=== PATIENT | male | born 1945 | race Caucasian/White ===

== ENCOUNTER 2019-09-13 06:57 | Day surgery (SDC) | payer OTHER, BC ==
[2019-09-12 14:55] VITALS: BMI 28.1
[2019-09-13] MEDS ORDERED: PROPOFOL 20 ML ONE (07:17)
[2019-09-13] MEDS ORDERED: MIDAZOLAM HCL 2 MG/2 ML SINGLE DOSE VIAL ONE ×2 (07:17)
[2019-09-13] MEDS ORDERED: SUCCINYLCHOLINE CHLORIDE 200 MG/10 ML SYRINGE ONE (07:17)
[2019-09-13] MEDS ORDERED: LIDOCAINE HCL/PF 2% SDV 5ML VIAL ONE (07:18)
[2019-09-13] MEDS ORDERED: KETOROLAC TROMETHAMINE 30 MG/1 ML VIAL ONE (07:18)
[2019-09-13] MEDS ORDERED: DEXAMETHASONE SOD PHOSPHATE 4 MG/1 ML VIAL ONE (07:18)
[2019-09-13] MEDS ORDERED: ceFAZolin SODIUM 1 GM VIAL ONE (07:18)
[2019-09-13] MEDS ORDERED: DEXAMETHASONE SOD PHOSPHATE/PF 10 MG/ML SDV ONE (07:29)
[2019-09-13] MEDS ORDERED: BUPIVACAINE HCL/PF 0.5% (5 MG/ML) 30 ML VIAL IJ ONE (07:29)
--- NOTE | 2019-09-13 08:08 | HP ---
Satellite [facility] - Chief Complaint Chief Complaint: right shoulder pain - Past Medical History Allergies/Adverse Reactions: Allergies Allergy/AdvReac Type Severity Reaction Status Date / Time No Known Allergies Allergy Verified 09/13/19 07:46 - Current Medications Current Medications: Home Medications Medication Instructions Recorded Carbidopa/Levodopa 1 each PO TID 09/12/19 [Carbidopa-Levodopa 25-100 Tab] Latanoprost/Pf [Latanoprost 0.005% 7.5 ml OP HS 09/12/19 Eye Drop] Levobunolol HCl [Betagan 0.5% -] 1 - 2 drop BID 09/12/19 Vitaligo Formula 900 4 cap PO TID 09/12/19 Satellite Physical Exam - Physical Examination Vital Signs: Vital Signs Period Temp Pulse Resp BP Sys/Belcher Pulse Ox Last 24 Hr 97.5 F 55 16 112/55 97 General Appearance: Well Nourished, Well Developed, Alert & Oriented x3 ENT: Clear Lung: Normal air movement Extremities: Other (right shoulder- + ttp ,dec rom, + neer, + koehler, + empty can, nvi, MRI + rct) Neurological: Intact, Alert, Oriented Satellite Impression/Plan - Impression/Plan Impression: right shoulder rct Operative Procedure: right shoulder arthroscopy with RCYANIQUE Lainez Date to be Performed: 09/13/19
[2019-09-13] MEDS ORDERED: ceFAZolin SODIUM 1 GM VIAL IVPB ONE (08:20)
[2019-09-13] MEDS ORDERED: EPHEDRINE SULFATE/0.9% NACL/PF 50 MG/10 ML SYRINGE NR ONE (09:26)
[2019-09-13] MEDS ORDERED: oxyCODONE HCL 5 MG TABLET PO PRN (10:27)
[2019-09-13] MEDS ORDERED: ONDANSETRON 4 MG/2 ML VIAL IVPUSH PRN (10:27)
[2019-09-13] MEDS ORDERED: LACTATED RINGERS SOLUTION 1,000 ML IV SCH (10:30)
--- NOTE | 2019-09-13 10:35 | OP ---
Operative Note - Note: Operative Date: 09/13/19 ([facility]) Pre-Operative Diagnosis: right shoulder rct Operation: right shoulder arthroscopy with RCR, SAD, DCE, ANGELICA Post-Operative Diagnosis: Same as Pre-op Surgeon: Jeff Anderson Professor Of Communication And Writing: Carlin Weber Anesthesiologist/[employer] INSPECTOR: uBck Castano Anesthesia: General, Local Specimens Removed: shavings Estimated Blood Loss (mls): 5
--- NOTE | 2019-09-13 11:27 | OP ---
DATE OF OPERATION: 09/13/2019 PREOPERATIVE DIAGNOSES: Right shoulder pain, subacromial impingement, acromioclavicular joint arthritis, and rotator cuff tear. POSTOPERATIVE DIAGNOSES: Right shoulder pain, subacromial impingement, acromioclavicular joint arthritis, and rotator cuff tear. PROCEDURE: Right shoulder arthroscopy, subacromial decompression, distal clavicle excision, arthroscopic rotator cuff repair, and manipulation under anesthesia. SURGEON: Jeff Anderson MD SENIOR GEOLOGIST: JEFF Bowers ANESTHESIOLOGIST: Buck Castano CRNA, in with FABI Sutherland. ANESTHESIA: Right interscalene block with LMA anesthesia. DRAINS: None. COMPLICATIONS: None. SPECIMENS: Arthroscopic shavings. BLOOD LOSS: Minimal. BLOOD GIVEN: None. FLUID REPLACEMENT: Plasma-Lyte 700 mL. This patient is a 73-year-old male with preoperative diagnosis of right shoulder pain, subacromial impingement, AC joint arthritis, and a rotator cuff tear. After understanding the potential risks, complications, alternatives, and benefits of surgical versus nonsurgical treatment, the patient elected to undergo this procedure. Patient was brought to the operating room. Peripheral IV placed. IV sedation given. Two grams of IV Ancef were given. After the right interscalene block was performed, LMA anesthesia was induced. He was placed into the beach chair position with ample padding throughout. The right upper extremity was prepped and draped in sterile fashion. Manipulation under anesthesia was done, and I was able to stretch him further by about 15 degrees in both forward flexion and abduction. I did not feel any edith tear or stretching of scar tissue. Next, the posterior portal was established. A diagnostic glenohumeral arthroscopy was performed. Immediately, it was apparent there was some significant tearing of both the biceps tendon and the undersurface of the rotator cuff as the glenohumeral joint was full of collagen fibers. Photographs were taken. An anterior portal was established under direct visualization using a spinal needle, then a number-15 scalpel blade and a green cannula. Next, a straight shaver was introduced into the joint, and the frayed portion of the biceps tendon was debrided as well as the undersurface of the rotator cuff, as well as the labrum. Once I did that, I had much better visualization, and I could see what was going on inside the joint. First, the inferior 50% of the biceps tendon was torn. This was the part that was debrided. Patient had a full-thickness rotator cuff tear on the posterior portion of the supraspinatus. The labrum was degenerated, but there was no edith tear. There was a lot of synovitis. The ArthroCare wand was introduced into the glenohumeral joint, and a partial synovectomy was performed in the glenohumeral joint. Lastly, the patient had a significant area about the size of a half dollar of complete lack of cartilage on the posterior inferior portion of the humeral head. Photographs were taken. Next, our attention was turned to the subacromial space. Patient had a tremendous amount of inflammatory bursitis. A lateral portal was established. An ArthroCare wand was utilized to do a soft tissue bursectomy. Extensive debridement was required. This revealed a large subacromial and large distal subclavicular bony spur. Both of these were taken down with a 5.5-mm oval francisca, fine-tuned in reverse, and then with the shaver to fine tune it further and to remove all bony debris. After the extensive debridement, soft tissue bursectomy, subacromial bony decompression of the spur off the inferior surface of both the acromion and the clavicle, we could directly visualize the top surface of the rotator cuff. Additional bursectomy was required as there was so much bursitis. This revealed 2 separate, but full-thickness rotator cuff tears, one that we visualized from the glenohumeral side of the posterior portion of the supraspinatus and one of the very anterior portion of the supraspinatus. Using a lateral portal, I was able to arthroscopically do a rotator cuff repair of both of these 2 separate, but full-thickness rotator cuff tears. I used the Curvoion needle passer to introduce 2 FiberWires into each of them and tacked it down with an Arthrex SwiveLock anchor. We used 2 anchors total, 4 FiberWires total to do the anterior and the posterior rotator cuff repair. That all came down quite nicely. The arm was moved, and it was directly visualized the rotator cuff moved as a unit with the humeral head, and there was point of compression. The area was copiously irrigated and washed out. All instrumentation and bony debris and excess saline were removed. The arthroscopy portals were closed with 3-0 nylon sutures. The area was then washed and dried, was covered with Aquacel dressing. Patient's arm was put into a shoulder immobilizer. There were no complications during the case. The patient tolerated the procedure quite well and was brought to the ambulatory recovery room in stable condition. Ryan ARAMBULA/[id number]
[2019-09-13 13:38] VITALS: TEMP 97.8
[2019-09-13 15:10] VITALS: BP 136/81; PULSE 71
--- NOTE | 2019-09-14 18:47 | PATH ---
Surgical Pathology Report Patient Name: SNOW RAYMUNDO Med. Rec. #: [id number] /Age/Gender: 1945 (Age: 73) / M Account: [id number] Location: [facility] SURGICAL Taken: 09/13/2019 Received: 09/13/2019 Reported: 09/14/2019 Physicians: Jeff Anderson M.D. Specimen(s) Received RIGHT SHOULDER SHAVINGS Clinical History Right shoulder tear Final Diagnosis RIGHT SHOULDER SHAVINGS: FRAGMENTS OF BONE, CARTILAGE, AND FIBROSYNOVIAL TISSUE WITH FOCAL FIBROSIS AND DEGENERATIVE CHANGE. Electronically Signed Jose Levine M.D. Gross Description Received in formalin, labeled "right shoulder shavings," is a 5.5 x 4.5 x 0.6 cm. aggregate of fisher-yellow soft tissue fragments. A patient intake representative portion is submitted in one cassette. /09/13/201909/13/2019
== END 2019-09-13 14:30 | disposition home or self-care (01) ==
LOC: JASU-SURG 06:57
PROVIDERS: ATTEND Orthopaedic Surgery
PROC: 0PB94ZZ Excision of Right Clavicle, Percutaneous Endoscopic Approach (ICD-10-PCS; 2019-09-13)
PROC: 0RNJ4ZZ Release Right Shoulder Joint, Percutaneous Endoscopic Approach (ICD-10-PCS; principal; 2019-09-13 09:00)
PROC: 0LQ14ZZ Repair Right Shoulder Tendon, Percutaneous Endoscopic Approach (ICD-10-PCS; 2019-09-13 09:00)
DX: M75.41 Impingement syndrome of right shoulder (principal); M19.011 Primary osteoarthritis, right shoulder; M75.101 Unspecified rotator cuff tear or rupture of right shoulder, not specified as traumatic; G47.30 Sleep apnea, unspecified
CPT/HCPCS: 88304-TC; 94760